=== PATIENT | female | born 1965 | race Caucasian/White ===

== ENCOUNTER 2023-10-30 06:08 | Emergency (ER) | payer OTHER, SELFPAY ==
[2023-10-30] VITALS (18 sets, daily range): BP systolic 82–137; BP diastolic 56–72; PULSE 90–101; RESP 18; TEMP 36.4; O2SAT 97–100
--- NOTE | ~2023-10-30 | CT_ITS ---
Non-contrast CT scan of the Abdomen and Pelvis Clinical indication: Flank pain Technique: 2.5 mm axial scans were obtained through the abdomen and pelvis without intravenous or or al contrast. Dose reduction technique was used on this scan by utilizing automated exposure control a nd iterative reconstruction technique. The dose-length product (DLP) was 526.20 mGy-cm. Findings: Images through the lung bases reveal no abnormalities. There is no evidence of renal or ureteral calculi. The kidneys and the ureters are nondilated. The liver, spleen, pancreas, gallbladder, and adrenals appear normal. There is no aortic aneurysm. There is no evidence of bowel obstruction. Normal appendix. Images through the pelvis were performed. There is no evidence of ascites or lymphadenopathy. Urinary bladder unremarkable. No adnexal mass evident. Impression: No significant abnormality seen. Reviewed, dictated and finalized at [facility]. REMOVER Impression: No significant abnormality seen.
[2023-10-30] MEDS: MORPHINE SULFATE (*CRX) 4 MG/ML INJ IV PUSH (07:30)
[2023-10-30] MEDS: SODIUM CHLORIDE 0.9% IV 1,000 ML 999 ML IV CONT (07:30)
[2023-10-30 07:51] LABS: Basophils Absolute Auto 0.1 K/mm3 (0.0-0.1); Basophils Percent Auto 0.7 % (0.2-1.2); Eosinophils Absolute Auto 0.2 K/mm3 (0-0.3); Eosinophils Percent Auto 2.7 % (0-4.4); Hematocrit 41.4 % (37.0-47.0); Hemoglobin 13.4 g/dL (12.0-15.0); Immature Granulocyte Absolute 0.02 K/mm3 (0.00-0.031); Immature Granulocyte Percent A 0.3 % (0-0.5); Lymphocytes Absolute Auto 1.93 K/mm3 (0.9-3.2); Mean Corpuscular HGB Conc 32.4 g/dl (32-36); Mean Corpuscular Hemoglobin 30.2 pg (26-34); Mean Corpuscular Volume 93.5 fl (80-100); Mean Platelet Volume 8.9 fl (7.4-10.4); Monocytes Absolute Auto 0.5 K/mm3 (0.1-0.6); Monocytes Percent Auto 6.3 % (2.6-8.5); Neutrophils Absolute Auto 4.5 K/mm3 (1.3-6.7); Platelet Count Result 302 k/mm3 (150-375); Red Blood Count 4.43 M/mm3 (4.2-5.4); Red Cell Distribution Width 12.4 % (11.5-14.5); White Blood Count 7.2 K/mm3 (4.5-10.0)
[2023-10-30 08:04] LABS: Appearance Urine Clear (Clear); Bacteria Urine None Seen /hpf; Bilirubin Urine Negative (Negative); Blood Urine Negative (Negative); Color Urine Yellow (Yellow); Glucose Urine UA Negative (Negative); Ketones Urine Negative (Negative); Leukocyte Esterase Ur 1+ LEU/UL (Negative); Need Manual Microscopic Reviewed; Nitrate Urine Negative (Negative); Non Pathogenic Casts 0-2; Protein Urine Negative (Negative); RBC Urine 0-2 /hpf (0-2); Specific Grav Ur 1.015 (1.001-1.035); Squamous Epithelial Cell Urine Occasional /hpf (Few); Urobilinogen Urine 0.2 mg/dL (<2.0); WBC Urine 0-5 /hpf; pH Urine 5.5 (5.0-9.0)
[2023-10-30 08:09] LABS: Add Urine Microscopic? YES; Alanine Aminotransferase 21 U/L (6-35); Albumin Level 4.5 g/dL (3.5-5.1); Alkaline Phosphatase 100 U/L (38-126); Anion Gap 7 mmol/L (8-16); Aspartate Amino Transferase 28 U/L (14-36); Bilirubin,Total 0.5 mg/dL (0.2-1.3); Blood Urea Nitrogen 15 mg/dL (7-17); Calcium 9.7 mg/dL (8.4-10.2); Carbon Dioxide 26 mmol/L (22-30); Chloride 106 mmol/L (98-107); Estimated CRCL calculation 60 ml/min; Estimated Glomerular Filt Rate > 60; Glucose 115 mg/dL (65-110); Potassium 3.9 mmol/L (3.4-5.0); Sodium 139 mmol/L (137-145)
--- NOTE | 2023-10-30 09:57 | ED.ABDPAIN ---
HPI - Abdominal Pain General Chief Complaint: Abdominal Pain Stated Complaint: RLQ abd pain Time Seen by Provider: 10/30/23 07:00 History of Present Illness HPI narrative: Patient is a 58-year-old female who presents ER with lower abdominal pain. Intermittent over last week. Recently diagnosed with urinary tract infection and was started on ciprofloxacin. Initially when started she had some nausea and vomiting. She also had hematuria earlier in the week. Related Data Allergies Allergy/AdvReac Type Severity Reaction Status Date / Time No Known Allergies Allergy Unverified 05/22/19 11:21 Review of Systems Review of Systems: All systems reviewed & are unremarkable except as noted in HPI and below PMFSH Past Medical History Medical History (Updated 10/30/23 @ 19:19 by Reid Peck MD) GERD (gastroesophageal reflux disease) Family History Family History (Updated 05/15/14 @ 07:13 by DOCTOR UNKNOWN) Father Malignant neoplasm of prostate, Onset Age: 64 Social History Social History Smoking status: Never smoker Alcohol intake: current Exam Narrative: GENERAL: Well-appearing, well-nourished, and in no acute distress. HEAD: Normocephalic, atraumatic. ENT: Mucous membranes moist. NECK: Supple. CHEST: Clear to auscultation. No respiratory distress. HEART: Regular rate and rhythm. Normal peripheral pulses. ABDOMEN: Soft, nontender, nondistended. EXTREMITIES: Normal range of motion. No edema. SKIN: Warm, dry, no rash. NEURO: Alert and oriented x3. PSYCH: Normal mood and affect. Course Course Emergency Course: informed of results. CT shows some mild constipation which may be causing some discomfort as well. Discharge. Vital Signs Vital signs: Vital Signs Temperature 97.5 F L 10/30/23 06:09 Pulse Rate 101 H 10/30/23 06:09 Respiratory Rate 18 10/30/23 06:09 Blood Pressure 130/70 10/30/23 06:09 Pulse Oximetry 100 10/30/23 06:09 Oxygen Delivery Room Air 10/30/23 06:09 Temperature 97.5 F L 10/30/23 06:09 Pulse Rate 90 10/30/23 09:46 Respiratory Rate 18 10/30/23 09:46 Blood Pressure 133/65 10/30/23 09:46 Pulse Oximetry 100 10/30/23 09:46 Oxygen Delivery Room Air 10/30/23 06:09 MDM - Abdominal Pain Lab Data 10/30/23 07:25 10/30/23 07:25 Labs: Lab Results 10/30/23 Range/Units 07:25 WBC 7.2 (4.5-10.0) K/mm3 RBC 4.43 (4.2-5.4) M/mm3 Hgb 13.4 (12.0-15.0) g/dL Hct 41.4 (37.0-47.0) % MCV 93.5 (80-100) fl MCH 30.2 (26-34) pg MCHC 32.4 (32-36) g/dl RDW 12.4 (11.5-14.5) % Plt Count 302 (150-375) k/mm3 MPV 8.9 (7.4-10.4) fl Immature Gran % (Auto) 0.3 (0-0.5) % Neut % (Auto) 63.0 (45.5-73.1) % Lymph % (Auto) 27.0 (18.3-44.2) % [place] % (Auto) 6.3 (2.6-8.5) % Eos % (Auto) 2.7 (0-4.4) % Baso % (Auto) 0.7 (0.2-1.2) % Lymph # (Auto) 1.93 (0.9-3.2) K/mm3 [place] # (Auto) 0.5 (0.1-0.6) K/mm3 Eos # (Auto) 0.2 (0-0.3) K/mm3 Baso # (Auto) 0.1 (0.0-0.1) K/mm3 Abs Immat Gran (auto) 0.02 (0.00-0.031) K/mm3 Absolute Neuts (auto) 4.5 (1.3-6.7) K/mm3 Absolute Nucleated RBC 0.0 (0.0-0.012) K/mm3 Nucleated RBC % 0.0 (0.0-0.2) % Sodium 139 (137-145) mmol/L Potassium 3.9 (3.4-5.0) mmol/L Chloride 106 (98-107) mmol/L Carbon Dioxide 26 (22-30) mmol/L Anion Gap 7 L (8-16) mmol/L BUN 15 (7-17) mg/dL Creatinine 0.90 (0.7-1.0) mg/dL Estim Creat Clear Calc 60 ml/min Estimated GFR > 60 (59 - ) Glucose 115 H (65-110) mg/dL Calcium 9.7 (8.4-10.2) mg/dL Total Bilirubin 0.5 (0.2-1.3) mg/dL AST 28 (14-36) U/L ALT 21 (6-35) U/L Alkaline Phosphatase 100 (38-126) U/L Total Protein 8.0 (6.3-8.2) g/dL Albumin 4.5 (3.5-5.1) g/dL Urine Color Yellow (Yellow) Urine Appearance Clear (Clear) Urine pH 5.5 (5.0-9.0) Ur Specific [place] 1.015 (1.001-1.035) Urine Protein Negative (Negative) mg/dL Urine Gluc
== END 2023-10-30 10:09 | disposition home or self-care (01) ==
PROVIDERS: Emergency Provider Emergency Medicine; PCP Nurse Practitioner
DX: K59.00 Constipation, unspecified (principal); R10.30 Lower abdominal pain, unspecified; K21.9 Gastro-esophageal reflux disease without esophagitis
CPT/HCPCS: 36415; 74176; 80053; 81001; 85025; 96361; 96374; 99284; J2270; J7030

== ENCOUNTER 2024-05-03 11:51 | Outpatient (CLI) | payer OTHER, SELFPAY ==
--- NOTE | 2024-05-03 13:13 | ECG_ITS ---
Test Date: 2024-05-03 13:29:52 Measurements Intervals [place] Rate: 82 P: 5 [place]: 192 QRS: 8 QRSD: 78 T: 34 QT: 349 QTc: 409 Interpretive Statements SINUS RHYTHM LOW QRS VOLTAGE IN PRECORDIAL LEADS [QRS DEFLECTION < 1.0 mV IN CHEST LEADS] BORDERLINE ECG No previous ECG available for comparison Electronically Signed On 05-03-2024 15:14:47 CDT by James Lux M.D.
[2024-05-03 13:42] LABS: Basophils Absolute Auto 0.1 K/mm3 (0.0-0.1); Basophils Percent Auto 0.7 % (0.2-1.2); Eosinophils Absolute Auto 0.1 K/mm3 (0-0.3); Eosinophils Percent Auto 1.4 % (0-4.4); Hematocrit 40.4 % (37.0-47.0); Hemoglobin 13.5 g/dL (12.0-15.0); Immature Granulocyte Absolute 0.03 K/mm3 (0.00-0.031); Immature Granulocyte Percent A 0.4 % (0-0.5); Lymphocytes Absolute Auto 2.48 K/mm3 (0.9-3.2); Lymphocytes Percent Auto 34.4 % (18.3-44.2); Mean Corpuscular HGB Conc 33.4 g/dl (32-36); Mean Corpuscular Volume 92.7 fl (80-100); Mean Platelet Volume 8.8 fl (7.4-10.4); Monocytes Absolute Auto 0.5 K/mm3 (0.1-0.6); Monocytes Percent Auto 6.9 % (2.6-8.5); Neutrophils Absolute Auto 4.1 K/mm3 (1.3-6.7); Neutrophils Percent Auto 56.2 % (45.5-73.1); Platelet Count Result 302 k/mm3 (150-375); Red Blood Count 4.36 M/mm3 (4.2-5.4); Red Cell Distribution Width 12.7 % (11.5-14.5); White Blood Count 7.2 K/mm3 (4.5-10.0)
[2024-05-03 13:52] LABS: INR 0.9; Prothrombin Time 12.2 Seconds (11.1-14.7)
[2024-05-03 13:53] LABS: Alanine Aminotransferase 25 U/L (6-35); Alkaline Phosphatase 94 U/L (38-126); Anion Gap 11 mmol/L (4-12); Aspartate Amino Transferase 24 U/L (14-36); Bilirubin,Total 0.4 mg/dL (0.2-1.3); Blood Urea Nitrogen 15 mg/dL (7-17); Carbon Dioxide 29 mmol/L (22-30); Chloride 98 mmol/L (98-107); Estimated Glomerular Filt Rate > 60; Glucose 101 mg/dL (65-110); Potassium 4.6 mmol/L (3.4-5.0); Sodium 138 mmol/L (137-145)
[2024-05-03 13:54] LABS: Partial Thromboplastin Time 27.1 Seconds (22.3-36.8)
== END 2024-05-03 11:52 | disposition home or self-care (01) ==
LOC: ANHSURGERY 12:12
PROVIDERS: PCP Nurse Practitioner; Visit Provider Urology
DX: Z01.812 Encounter for preprocedural laboratory examination (principal); Z01.810 Encounter for preprocedural cardiovascular examination; N81.3 Complete uterovaginal prolapse
CPT/HCPCS: 36415; 80053; 85025; 85610; 85730; 86850; 86900; 86901; 93005

== ENCOUNTER 2024-05-13 00:13 | Day surgery (SDC) | payer OTHER, SELFPAY ==
[2024-05-03 12:23] VITALS: BP 129/61; PULSE 85; RESP 16; TEMP 36.8; O2SAT 96; BMI 28.4
--- NOTE | 2024-05-03 12:38 | PC.NURSE ---
Report to the Outpatient Waiting Room, entrance under the green pavilion located off [facility], at time ___6:00AM____ on date ___05/13/24____. Planned Procedure Time: __7:30AM . Time changes happen often and if your time is changed the preop area will call you the afternoon before. - You and your visitor will be asked to self-screen and do not enter if you have any COVID symptoms. - A mask is optional within the hospital at this time. Patients may have clear liquids (water, carbonated beverages, clear teas, apple juice) until 3 hours prior to surgery with a maximum of 20 ounces. - No food from midnight until time of surgery. Take the following medications with a SIP of water the morning of surgery: NONE DO NOT STOP ANY OF YOUR OTHER PRESCRIPTION MEDICATIONS PRIOR TO SURGERY ?EXCEPT THE FOLLOWING Medications to discontinue per physician ____HOLD ALL VITAMINS/SUPPLEMENTS 3 DAYS PRE-OP PER ANESTHESIA Date to take last dose____05/09/24 Please no make-up, nail kinyarwanda, hairspray, perfume, deodorant, or body powder the day of surgery. No jewelry (including any body piercings) or valuables the day of surgery, leave them at home. Please take a shower or bath the night before, or the morning of, surgery with an antibacterial soap. Wear comfortable, loose fitting clothing. - Jewelry must be removed prior to entering the operating room. Rings and piercings that are not removed may be cut off. - The hospital will not accept responsibility for valuables. - Please leave all valuables, including medications, at home the day of surgery. If you are going home after surgery, a licensed local hazmat driver must drive you home. - NO public transportation without another adult if you receive anesthesia. - We recommend that an adult stay with you for 24 hours following discharge. - We also recommend that you do not drive, make important decision, drink alcoholic beverages, or take any drugs that were not prescribed by your health care provider for at least 24 hours after your discharge time. Follow any additional instructions given to you from your surgeon. If you or anyone in your household have experienced Covid symptoms in the past week, please notify your surgeon or the nurse liaison at the phone number below for possible testing. Telephone instructions given to ____PATIENT and asked if any additional questions and then verbalized understanding. Patient advised to call surgeon office or pre surgery nurse liaison [phone] if any additional questions.
--- NOTE | 2024-05-12 07:48 | PM.IMHP ---
H&P: HPI History of Present Illness Date/Time: 05/12/24 07:48 Chief Complaint: POP Narrative: uterine prolapse with TAMIKO. Desires surgical intervention Review of Systems Review of Systems: All systems reviewed & are unremarkable except as noted in HPI and below PMFSH Past Medical History Medical History GERD (gastroesophageal reflux disease) Family History Family History Father Malignant neoplasm of prostate, Onset Age: 64 Social History Social History Smoking status: Never smoker Alcohol intake: current Living arrangements: alone Spiritual care concerns: No Meds Home Medications and Allergies Home Medications Medication Instructions Recorded Confirmed Type cholecalciferol (vitamin D3) 25 25 mcg PO DAILY 05/03/24 05/03/24 History mcg (1,000 unit) tablet magnesium oxide 400 mg PO DAILY 05/03/24 05/03/24 History multivitamin 1 tablet PO DAILY 05/03/24 05/03/24 History omeprazole 40 mg capsule,delayed 40 mg PO QAM 05/03/24 05/03/24 History release Allergies Allergy/AdvReac Type Severity Reaction Status Date / Time No Known Allergies Allergy Verified 05/06/24 09:39 Exam Narrative: NAD normal breathing A+O x3 apex at +5 Assessment and Plan Assessment and plan (1) Uterine prolapse: Code(s): N81.4 - Uterovaginal prolapse, unspecified Status: Acute Assessment and Plan: Robotic Sacral Colpopexy
--- NOTE | 2024-05-12 22:48 | PM.IMHP ---
H&P: HPI History of Present Illness Date/Time: 05/12/24 22:48 Chief Complaint: Prolapse Narrative: 58 y/o who feels a bulge and occasionally notices some bleeding. She is known to have a third degree uterine prolapse, and bleeding is thought to be due to irritation of the prolapsed cervical epithelium. She is scheduled for robotic sacral colpopexy with Dr. Pennington, and for concurrent supracervical hysterectomy with oh. Endometrial sampling showed benign, inactive endometrial tissue. Review of Systems Review of Systems: All systems reviewed & are unremarkable except as noted in HPI and below PMFSH Past Medical History Medical History GERD (gastroesophageal reflux disease) Surgical History Surgical History History of bilateral tubal ligation Family History Family History Father Malignant neoplasm of prostate, Onset Age: 64 Social History Social History Smoking status: Never smoker Alcohol intake: current Living arrangements: alone Spiritual care concerns: No Meds Home Medications and Allergies Home Medications Medication Instructions Recorded Confirmed Type cholecalciferol (vitamin D3) 25 25 mcg PO DAILY 05/03/24 05/03/24 History mcg (1,000 unit) tablet magnesium oxide 400 mg PO DAILY 05/03/24 05/03/24 History multivitamin 1 tablet PO DAILY 05/03/24 05/03/24 History omeprazole 40 mg capsule,delayed 40 mg PO QAM 05/03/24 05/03/24 History release Allergies Allergy/AdvReac Type Severity Reaction Status Date / Time No Known Allergies Allergy Verified 05/06/24 09:39 Exam Const: Orientation/consciousness: patient oriented x3 Other: Well-developed, well-nourished female in no acute distress. Neck: Thyroid: thyroid normal Lymphatic: no lymphadenopathy noted (in neck, axilla or inguinal nodes) Resp: Effort & Inspection: normal respiratory effort Auscultation: clear to auscultation bilaterally Cardio: Rate: regular rate Rhythm: regular rhythm Heart sounds: S1 normal heart sound present and S2 normal heart sound present GI: Other: ABD: Soft, nontender, nondistended. No guarding or rebound tenderness. No hepatosplenomegaly. : General: Yes no CVA tenderness Other: External genitalia: normal female hair distribution, without lesion. Urethral meatus: no lesion, non prolapsed. Bladder: no mass, nontender Vagina: atrophic. The cervix prolapses through the vaginal introitus. Cervix: hyperkeratotic. Uterus: small, anteverted, freely mobile, nontender Adnexa: no mass or tenderness. Anus/perineum: no lesions, nontender Back/Spine/Pelvis: Back: no CVA tenderness Skin: General skin exam: normal color and no rashes or lesions noted Neuro: General: patient oriented x3 Extrem: Other: Extremities: nontender with no edema Psych: Mental Status: mental status grossly normal Affect: normal affect Assessment and Plan Assessment and plan (1) Uterine prolapse: Code(s): N81.4 - Uterovaginal prolapse, unspecified Status: Acute Assessment and Plan: A: Symptomatic pelvic organ prolapse P: We have reviewed options including observation, trial of pessary, and surgical management. She says she is ready for the last. Specifically, I have offered her a robotic assisted supracervical hysterectomy with bilateral salpingo-oophorectomies. Dr. Pennington then plans sacral colpopexy. See his dictation under a separate cover. She understands risks of surgery to include risks of anesthesia, risks of pain, infection, bleeding, blood products, thromboembolic phenomena and damage to adjacent structures such as bowel, bladder, ureters, blood vessels and nerves. She understands all these risks and elects to proceed with surgery.
[2024-05-13] VITALS (14 sets, daily range): BP systolic 98–136; BP diastolic 50–70; PULSE 77–106; RESP 12–18; TEMP 36.3–36.9; O2SAT 95–100
--- NOTE | 2024-05-13 07:10 | WPDANESEPPF ---
Anes - Initial Pre Proc Eval Procedure: Operation Date: 05/13/24 07:30 Proposed Procedures p Robotic Sacrocolpopexy, Urethral Sling - Mike Pennington MD s Robotic Assisted Supracervical Hysterectomy with Bilateral Salpingo-oophorectomy - Pilo Muro MD Date/Time: 05/13/24 07:10 Surgeon: Mike Pennington MD Pre Op Diagnosis: complete uterine prolapse, stress incont Patient Data Age: 58 Gender: F Height: 1.66 m Weight: 78.8 kg Last Vital Signs Temp 98.3 F 05/03/24 12:23 Pulse 85 05/03/24 12:23 Resp 16 05/03/24 12:23 BP 129/61 05/03/24 12:23 Pulse Ox 96 05/03/24 12:23 O2 Del Method Room Air 05/03/24 12:23 Allergies Allergy/AdvReac Type Severity Reaction Status Date / Time No Known Allergies Allergy Verified 05/06/24 09:39 Home Medications Medication Instructions Recorded Confirmed Type cholecalciferol (vitamin D3) 25 25 mcg PO DAILY 05/03/24 05/03/24 History mcg (1,000 unit) tablet magnesium oxide 400 mg PO DAILY 05/03/24 05/03/24 History multivitamin 1 tablet PO DAILY 05/03/24 05/03/24 History omeprazole 40 mg capsule,delayed 40 mg PO QAM 05/03/24 05/03/24 History release Patient hx anesthesia problems: none Family hx anesthesia problems: none Results Review: All pre-operative results and documents have been reviewed as part of the pre-operative evaluation. [facility] Past Medical History Medical History GERD (gastroesophageal reflux disease) Surgical History Surgical History History of bilateral tubal ligation Family History Family History Father Malignant neoplasm of prostate, Onset Age: 64 Social History Social History Smoking status: Never smoker Alcohol intake: current Living arrangements: alone Spiritual care concerns: No Anes - Eval Final PreProcedure Day of Procedure 05/13/24 07:10 Patient weight: normal Heart: regular rate and rhythm Lungs: clear to auscultation Airway: Mallampati scale class II Neurological: alert and oriented Last oral intake: >/= 8 hours ASA classification: II Emergent: no Anesthetic plan: proceed Anesthesia type and monitoring: general ETT and standard monitoring Results Review: All pre-operative results and documents have been reviewed as part of the pre-operative evaluation. Informed Consent: The patient's anesthetic plan and its attendant risks and benefits were discussed with the patient/family/POA. Questions were solicited and answers provided to the satisfaction of the patient/family/POA.
--- NOTE | 2024-05-13 07:14 | WPDHPUPDATE1 ---
History and Physical Update Update Date/Time: 05/13/24 07:14 History and Physical has been reviewed, including an updated exam of the patient. There are NO changes in the patient's condition. Risks, benefits, and alternatives have been discussed and questions answered. Patient agrees to proceed with procedure.
[2024-05-13] MEDS: ACETAMINOPHEN 500 MG TABLET 1000 MG PO (07:15)
[2024-05-13] MEDS: LACTATED RINGERS 1,000 ML 30 ML IV CONT ×2 (07:15→10:08)
--- NOTE | 2024-05-13 07:22 | WPDHPUPDATE1 ---
History and Physical Update Update Date/Time: 05/13/24 07:22 History and Physical has been reviewed, including an updated exam of the patient. There are NO changes in the patient's condition. Risks, benefits, and alternatives have been discussed and questions answered. Patient agrees to proceed with procedure.
[2024-05-13] MEDS: ceFAZolin 2 GM/D5W 50 ML 2 GM/50 ML BAG IVPB (07:46)
[2024-05-13] MEDS: metroNIDAZOLE 500 MG/ISO 100ML 500 MG/100 ML BAG 100 MG IVPB (07:50)
[2024-05-13] MEDS: BUPIVACAINE/EPINEPHRINE 0.5% 10 ML VIAL 20 ML INFILTRATE (08:10)
--- NOTE | 2024-05-13 08:33 | W.PM.PROC2 ---
Procedure Note - Detailed Date of Procedure 05/13/24 Pre-op Diagnosis Pelvic organ prolapse Post-op Diagnosis Same Procedure Performed Robotic supracervical hysterectomy with bilateral salpingooophorectomy Surgeon Pilo Muro MD Anesthesia General Findings Third degree uterine prolapse. Otherwise, unremarkable uterus, tubes and ovaries. Description of Procedure The patient was taken to the operating room where general endotracheal anesthesia was administered. She was prepared and draped in the usual sterile fashion in the dorsal lithotomy position. The bladder was drained with Fields catheter. The cervix was visualized and the anterior lip was grasped using a single-tooth tenaculum. An acorn uterine manipulator was placed. Dr. Pennington placed the ports and docked the robotic patient cart with the patient in Trendelenburg position. I assumed the console. The ureters were visualized bilaterally. The round ligament on the right was divided. The infundibulopelvic ligament was divided. The broad ligament was divided, skeletonizing the uterine artery on the right. The bladder was reflected away. The left side was similarly dissected. The uterus was amputated from the cervix, and the specimen was placed in a bag and removed and passed off to be sent to pathology. Pedicles were inspected and found to be hemostatic. Bilateral ureteral vermiculation again noted. Dr. Pennington then continued his portion of the procedure, to be documented under a separate cover. I was present and scrubbed through the entire hysterectomy portion of the procedure. Implants None Estimated Blood Loss 30 Drains Yes (fields) Packing No Pathology Yes (Uterus, bilateral tubes and ovaries) Complications None Condition Stable
--- NOTE | 2024-05-13 09:55 | W.PM.PROC2 ---
Procedure Note - Detailed Date of Procedure 05/13/24 Pre-op Diagnosis complete uterine prolapse Post-op Diagnosis Same Procedure Performed Robotic assisted laparoscopic sacral colpopexy Cystoscopy Surgeon Mike Pennington MD Anesthesia General Indications A woman with uterine prolapse. She does not have stress incontinence by history or on urodynamic. She desires surgical correction. She is here for the above. She understands risks of bleeding, infection, diskitis, damage to surrounding organs, bowel injury, bowel obstruction, mesh related complications including exposure and extrusion, postoperative voiding dysfunction including incontinence and retention, need for ancillary procedures, dyspareunia, recurrence of prolapse, and other perioperative intraoperative postoperative complications. She agrees to proceed. Findings See below Description of Procedure She was correctly identified. Informed consent obtained. She from the operating room. She was given general anesthesia. She was given appropriate perioperative antibiotics. She was placed a low lithotomy position. Pressure points were padded. A time-out performed. I marked out the skin 3 fingerbreadths cephalad to the umbilicus. I anesthetized the skin. I incised the skin. I dissected down to the fascia. I grasped the fascia with Monique clamps. I entered the fascia sharply in a Cummings type technique. I placed sutures for later fascial closure. I placed a midline trocar. I examined the abdomen. There is no sign of any injury. Under direct vision I placed 2 additional trocars in the right upper quadrant and 2 additional trocars the left upper quadrant. She was placed in steep Trendelenburg. The robot was docked. Her senior electrical project manager completed their portion of the procedure. Please see that operative report for details. I then sat at the console. I dissected off another cm or so of cervix. The Sizer in the vagina created plane on the anterior and posterior vaginal wall. I took great care not to injure the vagina, bladder, or rectum. I introduced the mesh into the abdomen. I sewed the anterior leaflet of mesh on the anterior vaginal wall. I sewed the posterior leaflet of mesh on the posterior vaginal wall. This was done with several sutures of 2 0 [place]-Олег. I reflected the colon laterally. I opened the posterior peritoneum over the sacral promontory. I carried this into the cul-de-sac. I freed up the edges for later retroperitonealization. I located the anterior longitudinal ligament the sacrum. I cleaned off all fatty tissues. I then tensioned my mesh appropriately. I did a vaginal exam the bedside. I assured prolapse reduction without undue tension. I then sewed the proximal leaflet of mesh onto the anterior longitudinal ligament of the sacrum with 4l sutures of 2 0 [place]-Олег. I then used a 2 0 Monocryl to completely and meticulously retroperitonealized all mesh. I allowed the colon to go back to its normal anatomic location. There is no sign of any impingement. The specimen was then removed. All ports removed. Fascia was tied down. Additional suture was placed to fully close the fascia. Skin was closed with Monocryl and surgical glue. I then performed cystoscopy. There was no tumors or surgical artifact. There was mild trabeculations. Both ureters were seen to excrete clear yellow urine. There is no surgical artifact in the bladder or urethra. I cut the excess sling material. Close incision with glue. She was awakened and transferred to PACU in stable condition. Implants Sacral colpopexy mesh Estimated Blood Loss 10 Drains No Packing No Pathology None sent
--- NOTE | 2024-05-13 10:38 | SUR.PHASEI ---
1037: Simple mask removed.
[2024-05-13] MEDS: fentaNYL CITRATE INJ (*CRX) 100 MCG/2 ML VIAL 25 MCG IV PUSH ×5 (10:45→11:33)
[2024-05-13] MEDS: PROPARACAINE HCL 0.5% 15 ML OPHTH SOLN 1 DROP EACH EYE ×2 (12:02→12:04)
[2024-05-13] MEDS: ARTIFICIAL TEARS OPHTH SOLN 15 ML BOTTLE 1 DROP EACH EYE ×3 (12:05→12:51)
[2024-05-13] MEDS: DICLOFENAC SODIUM 0.1% OPHTH SOLN 2.5 ML BOTTLE 1 DROP EACH EYE ×3 (12:06→12:55)
[2024-05-13] MEDS: HYDROcodone/acetaminophen (*CRX) 5-325 MG TABLET 1 TAB PO (13:14)
--- NOTE | 2024-05-13 13:21 | SUR.PHASEII ---
PATIENT STATES RIGHT EYE STILL IRRITATED, RED, TEARING EVEN AFTER EYE DROPS ADMINISTERED TWICE. WILL CONTINUE TO MONITOR. WAITING FOR PATIENT TO URINATE.
== END 2024-05-13 14:26 | disposition home or self-care (01) ==
PROVIDERS: Obstetrics & Gynecology; PCP Nurse Practitioner; Visit Provider Urology
PROC: (CPT 57425; principal; 2024-05-13 07:30)
PROC: 0UT94ZZ Resection of Uterus, Percutaneous Endoscopic Approach (ICD-10-PCS; CPT 57425; 2024-05-13 07:30)
DX: N81.3 Complete uterovaginal prolapse (principal); D25.1 Intramural leiomyoma of uterus; D25.2 Subserosal leiomyoma of uterus; N32.89 Other specified disorders of bladder; K21.9 Gastro-esophageal reflux disease without esophagitis; Z98.51 Tubal ligation status; Z80.42 Family history of malignant neoplasm of prostate
CPT/HCPCS: 58542; 57425; S2900 ×2; 36415; 80053; 85025; 85610; 85730; 86850; 86900; 86901; 88307; 93005; A9270; C1781; J0690; J1100; J1836; J2250; J2371; J2405; J2704; J3010; J7030; J7120